=== PATIENT | female | born 1955 | race Caucasian/White ===

== ENCOUNTER 2018-12-03 05:26 | Inpatient (IN) | payer MEDICAID ==
[2018-12-03] MEDS ORDERED: Albuterol/Ipratropium Neb 3 ML AERS HHN ONE ×3 (05:51→09:10)
[2018-12-03] MEDS ORDERED: Dexamethasone Sodium Phos 4 mg/mL Vial INH STA (05:52)
[2018-12-03] MEDS ORDERED: Dexamethasone Sodium Phos 4 mg/mL Vial ONE (05:55)
[2018-12-03] MEDS ORDERED: Sodium Chloride 0.9% 250 ML IV ONE (05:59)
--- NOTE | 2018-12-03 05:59 | ED Physician Chart ---
ED Chief Complaint/HPI - Patient Information Date Seen:: 12/03/18 Time Seen:: 05:53 Chief Complaint:: sob History of Present Illness:: 63 yr old with hx of copd with sob cough congestion Allergies:: Allergies Allergy/AdvReac Type Severity Reaction Status Date / Time No Known Allergies Allergy Verified 12/03/18 05:47 Vitals:: Vital Signs - 8 hr 12/03/18 05:30 Temp 97.7 F HR 104 RR 20 BP 149/108 O2 Sat % 83 ED Review of Systems - Review of Systems General/Constitutional: Fever Skin: No skin lesions, No rash, No bruising Head: No headache, No light-headedness Eyes: No loss of vision, No pain, No diplopia ENT: No earache, No nasal drainage, No sore throat, No tinnitus Neck: No neck pain, No swelling, No thyromegaly, No stiffness, No mass noted Cardio Vascular: No chest pain, No palpitations, No PND, No orthopnea, No edema Pulmonary: SOB, Cough GI: Nausea, Vomiting, Diarrhea G/U: No dysuria, No frequency, No hematuria Musculoskeletal: No bone or joint pain, No back pain, No muscle pain Endocrine: No polyuria, No polydipsia Psychiatric: No prior psych history, No depression, No anxiety, No suicidal ideation Hematopoietic: No bruising, No lymphadenopathy Allergic/Immuno: No urticaria, No angioedema Neurological: No syncope, No focal symptoms, No weakness, No paresthesia, No headache, No seizure, No dizziness, No confusion, No vertigo ED Past Medical History - Past Medical History Past Medical History: Other (sob) ED Physical Exam - Physical Examination Other Respiratory comments:: sob wheezing decreased airway movement ED Assessment - Assessment General Assessment: copd exacerbation bronchitis ED Septic Shock - . Is Septic Shock (SBP<90, OR Lactate>4 mmol\L) present?: No - <6hrs of presentation: Vital Signs: Vital Signs - 8 hr 12/03/18 05:30 Temp 97.7 F HR 104 RR 20 BP 149/108 O2 Sat % 83 ED Reassessment (Disposition) - Reassessment Reassessment:: copd [id number] - Diagnosis Diagnosis:: copd exacerbation - Patient Disposition Discharge/Transfer:: Acute Care w/in this hosp Condition at Disposition:: Stable
[2018-12-03 06:19] LABS: % BASOPHILS 0.5 % (0.0-2.0); % EOSINOPHILS 0.2 % (0.0-5.0); % LYMPHOCYTES 8.1 % (20.0-50.0); % MONOCYTES 7.9 % (2.0-10.0); % NEUTROPHILS 83.3 % (40.0-80.0); HEMATOCRIT 40.9 % (41.0-60); HEMOGLOBIN 13.5 gm/dL (12-16); LYMPHOCYTE ABSOLUTE 0.6 Th/cmm (1.5-3.0); MEAN CELL VOLUME 92.9 fl (81-100); MEAN CORPUSCULAR HEMOGLOBIN 30.8 pg (27.0-31.0); MEAN CORPUSCULAR HGB CONC 33.1 pg (28.0-36.0); MEAN PLATELET VOLUME 7.7 fl; MONOCYTE ABSOLUTE 0.6 Th/cmm (0.3-1.0); NEUTROPHILE ABSOLUTE 6.1 Th/cmm (1.8-8.0); PLATELET COUNT 212 Th/cmm (150-400); RED CELL DISTRIBUTION WIDTH 11.7 % (11.5-20.0); WHITE BLOOD COUNT 7.3 Th/cmm (4.8-10.8)
[2018-12-03 06:30] LABS: ALB/GLOB RATIO 1.5 (1.0-1.8); ALBUMIN 4.2 gm/dL (3.7-5.3); BILIRUBIN,TOTAL 0.3 mg/dL (0.3-1.0); CALCIUM SERUM 9.3 mg/dL (8.6-10.3); CARBON DIOXIDE 25.5 mEq/L (21.0-31.0); CREATININE - SERUM 1.2 mg/dL (0.6-1.2); GFR AFRICAN-AMERICAN 58.5 ml/min (>90); GFR NON AFRICAN-AMERICAN 48.4 ml/min; POTASSIUM SERUM 4.5 mEq/L (3.5-5.1)
[2018-12-03] MEDS ORDERED: cefTRIAXone 1 GM in Sodium Chloride 0.9% 50 ML IV ONE (07:20)
[2018-12-03] MEDS ORDERED: Magnesium Sulfate 1 gm/2 mL 2mL Vial IV ONE (07:36)
--- NOTE | 2018-12-03 08:29 | Diagnostic Imaging Report ---
Portable chest x-ray Time: 0 714 History: Shortness of breath Allowing for portable technique the heart size is normal. No focal pulmonary parenchymal processes. No hilar or mediastinal abnormalities. Impression: No acute abnormalities.
[2018-12-03 08:53] LABS: URINE BILIRUBIN NEGATIVE (NEGATIVE); URINE BLOOD SMALL (NEGATIVE); URINE GLUCOSE (UA) NEGATIVE (NEGATIVE); URINE KETONE NEGATIVE (NEGATIVE); URINE LEUKOCYTE ESTERASE NEGATIVE (NEGATIVE); URINE MICROSCOPIC INDICATED? YES; URINE NITRATE POSITIVE (NEGATIVE); URINE PROTEIN 30 mg/dL (NEGATIVE); URINE SOURCE CLEAN C; URINE UROBILINOGEN 0.2 E.U./dL (0.2 - 1.0)
[2018-12-03] MEDS: Albuterol/Ipratropium Neb 3 ML AERS HHN SCH ×3 (09:14→19:19)
[2018-12-03 09:22] LABS: URINE CLARITY SLIGHT HAZY (CLEAR); URINE COLOR STRAW
[2018-12-03] MEDS ORDERED: methylPREDNISolone SS 40 mg Vial ONE (09:28)
[2018-12-03] MEDS: methylPREDNISolone SS 40 mg Vial IVP SCH ×3 (09:30→20:57)
[2018-12-03 09:39] LABS: URINE EPITHELIAL CELLS RARE /lpf (FEW); URINE RBC 0-2 /hpf (0-5); URINE WBC NONE SEEN /hpf (0-5)
[2018-12-03 09:40] LABS: URINE BACTERIA OCCASIONAL /hpf (NONE SEEN)
[2018-12-03 11:46] VITALS: BP 148/55
[2018-12-03] MEDS: Azithromycin 500 MG in Sodium Chloride 0.9% 250 ML IV SCH (17:30)
[2018-12-03] MEDS: Guaifenesin DM 10 ML UDC PO PRN (21:01)
[2018-12-04] MEDS: Albuterol/Ipratropium Neb 3 ML AERS HHN SCH ×4 (00:05→19:16)
[2018-12-04] MEDS: methylPREDNISolone SS 40 mg Vial IVP SCH ×4 (02:04→20:40)
[2018-12-04] MEDS: cefTRIAXone 1 GM in Sodium Chloride 0.9% 50 ML IV SCH (09:43)
[2018-12-04] MEDS: Albuterol/Ipratropium Neb 3 ML AERS HHN PRN (10:35)
--- NOTE | 2018-12-04 16:55 | History & Physical ---
ADMIT DATE: 12/03/2018 REASON FOR CONSULTATION: Help the patient with shortness of breath. HISTORY OF PRESENT ILLNESS: This is a 63-year-old female who is more than [id number] smoker, still smoke pack to a pack and half every day. Her symptoms started a few days back where more coughing, more wheezing and more shortness of breath. Subsequently, get extreme chest tightness, came to the hospital for further care and necessary treatment. Denied any fever. Denied of having any chest pain. ____ much of bronchorrhea. Some sinus congestion, occasional swelling of the legs. The patient has been chronic dyspneic on exertion to less than a flight of staircase for last many months. Has been started on Atrovent nebulized breathing treatment as well as albuterol by her PCP. No change in weight loss, etc. Has some snoring symptomatology, slight dyspeptic symptomatology. PAST MEDICAL HISTORY: 1. Hypertension. 2. Chronic obstructive pulmonary disease. ALLERGIC HISTORY: Nil. PAST SURGICAL HISTORY: As mentioned above. SOCIAL HISTORY: No illicit drug use, etc. Currently not working. PHYSICAL EXAMINATION: GENERAL: This is an thin looking middle-aged female, awake, alert, oriented, not in any acute distress. VITAL SIGNS: The patient's recorded vitals; temperature is 97.7, blood pressure 141/56, and saturation is 98 on 2 liters per minute. HEENT: Essentially unremarkable. Pupils appear to be equal and reacting to light. Conjunctivae slightly pallor. Oral cavity shows small oropharyngeal opening. No nodes in the neck could be palpated. CHEST: Shows scattered wheezing with diminished air entry. HEART: Regular. ABDOMEN: Soft and nontender. EXTREMITIES: Shows no peripheral edema. LABORATORY DATA: The patient's pertinent laboratory studies: White count is 7.3, hemoglobin is 13.5. Sodium is 135. Sugar is 121. Urine shows positive nitrites with small blood. Chest x-ray shows slightly over penetrated, slightly increased bronchovascular marking, otherwise unremarkable. IMPRESSION: 1. The patient has acute exacerbation of chronic obstructive pulmonary disease. 2. Developing emphysema. 3. Hypertension. 4. Suspect sleep apnea syndrome/gastroesophageal reflux disease. PLANS AND SUGGESTIONS: We will give aggressive respiratory care, inhalation treatment. I agree with antibiotic. We will repeat chest x-ray PA and lateral, including ABG, etc. and go from there. Thank you very much. We will be glad to follow along with you. JOB# [id number]
[2018-12-04] MEDS ORDERED: Azithromycin 250 MG in Sodium Chloride 0.9% 250 ML IV SCH (17:00)
[2018-12-04] MEDS: Azithromycin 500 MG in Sodium Chloride 0.9% 250 ML IV SCH (17:28)
--- NOTE | 2018-12-04 18:09 | History & Physical ---
ADMIT DATE: 12/03/2018 CHIEF COMPLAINT: Shortness of breath. HISTORY OF PRESENT ILLNESS: A 63-year-old female who is a chronic smoker with an underlying history of COPD who was evaluated in the emergency room for shortness of breath and cough, diagnosed with acute exacerbation, and admitted for further treatment. The patient has not been feeling well for about 3-4 days, was having nausea, some diarrhea. Denies any fever. No chills. No headache. No body ache. The patient, overnight, did well, started her on Solu-Medrol, antibiotics, and bronchodilator treatment. The patient states today she feels much better. PAST MEDICAL HISTORY: COPD. PAST SURGICAL HISTORY: Denied. SOCIAL HISTORY: Chronic smoker. Denies alcohol or drug use. MEDICATIONS: Per medication reconciliation. ALLERGIES: No known drug allergies. REVIEW OF SYSTEMS: As per HPI, 12-point system reviewed, was negative. PHYSICAL EXAMINATION: VITAL SIGNS: Temperature 99.6, pulse 91, respirations 20, blood pressure 134/57, 92% with 2 liters nasal cannula. HEENT: Unremarkable. HEART: S1, S2 normal. LUNGS: Bilateral rales. ABDOMEN: Soft, nontender. EXTREMITIES: No edema. AVAILABLE LAB DATA/IMAGING: The patient had a chest x-ray which was negative for any infiltrate. ASSESSMENT: Acute COPD Exacerbation Nicotine dependancy PLAN: The patient will continue on Rocephin, frequent bronchodilator treatment, oxygen support, IV Solu-Medrol, pulmonology consulted, Robitussin-DM for cough. Smoking cessation discussed with the patient. Plan of care discussed with the patient and the staff. JOB# [id number] [facility]
[2018-12-04] MEDS: Budesonide 0.5 Mg/2 mL Ud HHN SCH (19:16)
[2018-12-04] MEDS: Guaifenesin DM 10 ML UDC PO PRN (20:40)
--- NOTE | 2018-12-04 21:27 | General Progress Note ---
Subjective - Review of Systems Service Date: 12/04/18 Subjective: Patient doing better no new concern reported Objective - Results Result Diagrams: 12/03/18 06:07 12/03/18 06:07 Recent Labs: Laboratory Last Values WBC 7.3 Th/cmm (4.8-10.8) 12/03/18 06:07 RBC 4.40 Mil/cmm (3.80-5.10) 12/03/18 06:07 Hgb 13.5 gm/dL (12-16) 12/03/18 06:07 Hct 40.9 % (41.0-60) L 12/03/18 06:07 MCV 92.9 fl (81-100) 12/03/18 06:07 MCH 30.8 pg (27.0-31.0) 12/03/18 06:07 MCHC Differential 33.1 pg (28.0-36.0) 12/03/18 06:07 RDW 11.7 % (11.5-20.0) 12/03/18 06:07 Plt Count 212 Th/cmm (150-400) 12/03/18 06:07 MPV 7.7 fl 12/03/18 06:07 Neutrophils % 83.3 % (40.0-80.0) H 12/03/18 06:07 Lymphocytes % 8.1 % (20.0-50.0) L 12/03/18 06:07 Monocytes % 7.9 % (2.0-10.0) 12/03/18 06:07 Eosinophils % 0.2 % (0.0-5.0) 12/03/18 06:07 Basophils % 0.5 % (0.0-2.0) 12/03/18 06:07 Sodium 135 mEq/L (136-145) L 12/03/18 06:07 Potassium 4.5 mEq/L (3.5-5.1) 12/03/18 06:07 Chloride 100 mEq/L (98-107) 12/03/18 06:07 Carbon Dioxide 25.5 mEq/L (21.0-31.0) 12/03/18 06:07 Anion Gap 14.0 (7.0-16.0) 12/03/18 06:07 BUN 12 mg/dL (7-25) 12/03/18 06:07 Creatinine 1.2 mg/dL (0.6-1.2) 12/03/18 06:07 Est GFR ( Amer) 58.5 ml/min (>90) 12/03/18 06:07 Est GFR (Non-Af Amer) 48.4 ml/min 12/03/18 06:07 BUN/Creatinine Ratio 10.0 12/03/18 06:07 Glucose 121 mg/dL (70-105) H 12/03/18 06:07 Calcium 9.3 mg/dL (8.6-10.3) 12/03/18 06:07 Total Bilirubin 0.3 mg/dL (0.3-1.0) 12/03/18 06:07 AST 24 U/L (13-39) 12/03/18 06:07 ALT 16 U/L (7-52) 12/03/18 06:07 Alkaline Phosphatase 41 U/L (34-104) 12/03/18 06:07 Total Protein 7.0 gm/dL (6.0-8.3) 12/03/18 06:07 Albumin 4.2 gm/dL (3.7-5.3) 12/03/18 06:07 Globulin 2.8 gm/dL 12/03/18 06:07 Albumin/Globulin Ratio 1.5 (1.0-1.8) 12/03/18 06:07 Urine Source CLEAN C 12/03/18 05:52 Urine Color STRAW 12/03/18 05:52 Urine Clarity SLIGHT HAZY (CLEAR) 12/03/18 05:52 Urine pH 6.0 (4.6 - 8.0) 12/03/18 05:52 Ur Specific [place] 1.015 (1.005-1.030) 12/03/18 05:52 Urine Protein 30 mg/dL (NEGATIVE) H 12/03/18 05:52 Urine Glucose (UA) NEGATIVE mg/dL (NEGATIVE) 12/03/18 05:52 Urine Ketones NEGATIVE mg/dL (NEGATIVE) 12/03/18 05:52 Urine Blood SMALL (NEGATIVE) H 12/03/18 05:52 Urine Nitrate POSITIVE (NEGATIVE) H 12/03/18 05:52 Urine Bilirubin NEGATIVE (NEGATIVE) 12/03/18 05:52 Urine Urobilinogen 0.2 E.U./dL (0.2 - 1.0) 12/03/18 05:52 Ur Leukocyte Esterase NEGATIVE (NEGATIVE) 12/03/18 05:52 Urine RBC 0-2 /hpf (0-5) 12/03/18 05:52 Urine WBC NONE SEEN /hpf (0-5) 12/03/18 05:52 Ur Epithelial Cells RARE /lpf (FEW) 12/03/18 05:52 Urine Bacteria OCCASIONAL /hpf (NONE SEEN) 12/03/18 05:52 - Physical Exam Vitals and I&O: Vital Signs Temp 98.2 F 12/04/18 16:31 Pulse 96 12/04/18 19:28 Resp 22 12/04/18 19:28 BP 141/56 12/04/18 16:31 Pulse Ox 97 12/04/18 19:28 Intake & Output 12/04/18 12/04/18 12/05/18 06:59 18:59 06:59 Intake Total 220 850 250 Output Total 500 Balance 220 350 250 Weight (lbs) 64.41 kg 64.319 kg Intake: Intake, IV Amount 250 Azithromycin 500 mg In 250 Sodium Chloride 0.9% 250 ml @ 250 mls/hr IV Q24HR [facility] Rx#:[id number] Oral 220 850 Output: Urine 500 Other: # Voids 1 # Bowel Movements 1 Weight Source Bedscale Bedscale Active Medications: Current Medications Albuterol/Ipratropium (Duoneb Neb) 3 ml HHN Q2H PRN PRN Reason: Shortness of Breath or Wheeze Stop: 02/01/19 09:14 Last Admin: 12/04/18 10:35 Dose: 3 ml Albuterol/Ipratropium (Duoneb Neb) 3 ml HHN [id number] [facility] Stop: 02/02/19 18:59 Last Admin: 12/04/18 19:16 Dose: 3 ml Budesonide (Pulmicort) 0.5 mg HHN BIDRT [facility] Stop: 02/02/19 18:59 Last Admin: 12/04/18 19:16 Dose: 0.5 mg Guaifenesin/Dextromethorphan (Robitussin Dm) 10 ml PO Q6HR PRN PRN Reason: Cough Stop: 02/01/19 18:52 Last Admin: 12/04/18 20:40 Dose: 10 ml Ceftriaxone Sodium 1 gm/ (Sodium Chloride) 50 mls @ 100 mls/hr IV Q24HR [facility] Stop: 02/02/19 08:59 Last Admin: 12/04/18 09:43 Dose: 100 mls/hr Azithromycin 500 mg/ Sodium (Chloride) 250 mls @ 250 mls/hr IV Q24HR [facility] Stop: 02/01/19 16:59 Last Infusion: 12/04/18 20:34 Dose: Infused Methylprednisolone Sodium Succinate (Solu-Medrol) 20 mg IVP Q6HR [facility] Stop: 02/03/19 00:00 Cardiovascular: Regular rate Lungs: Other (rales) Assessment/Plan - Assessment Assessment: Acute COPD exacerbation Nicotine dependancy - Plan Plan: Taper sterids IV rocephine and zithromax Duo NEB
[2018-12-05] MEDS: Albuterol/Ipratropium Neb 3 ML AERS HHN PRN ×2 (00:11→05:19)
[2018-12-05] MEDS: methylPREDNISolone SS 40 mg Vial IVP SCH ×4 (00:52→17:47)
[2018-12-05 06:50] LABS: HEMATOCRIT 36.8 % (41.0-60); HEMOGLOBIN 12.6 gm/dL (12-16); MEAN CELL VOLUME 93.2 fl (81-100); MEAN CORPUSCULAR HEMOGLOBIN 31.8 pg (27.0-31.0); MEAN CORPUSCULAR HGB CONC 34.1 pg (28.0-36.0); PLATELET COUNT 201 Th/cmm (150-400); RED BLOOD COUNT 3.95 Mil/cmm (3.80-5.10); RED CELL DISTRIBUTION WIDTH 11.5 % (11.5-20.0); WHITE BLOOD COUNT 13.4 Th/cmm (4.8-10.8)
[2018-12-05 08:00] LABS: NEUTROPHILS 92 % (40-80)
[2018-12-05 08:01] LABS: BAND NEUTROPHILE 0 % (0-10); LYMPHOCYTE 5 % (20-50); MONOCYTE 3 % (2-10)
[2018-12-05] MEDS: cefTRIAXone 1 GM in Sodium Chloride 0.9% 50 ML IV SCH (08:39)
--- NOTE | 2018-12-05 08:52 | Diagnostic Imaging Report ---
Chest x-ray (2 views) HISTORY: Shortness of breath The lungs are hyperexpanded consistent with changes of COPD. Accentuation of the lower interstitial lung markings. However, no acute focal processes are seen. The heart size is normal. Atherosclerotic calcification seen in the aorta. No hilar or mediastinal abnormalities. IMPRESSION: 1. Findings consistent with COPD 2. No acute abnormalities
[2018-12-05] MEDS: Budesonide 0.5 Mg/2 mL Ud HHN SCH ×2 (09:50→19:04)
[2018-12-05] MEDS: Albuterol/Ipratropium Neb 3 ML AERS HHN SCH ×4 (09:57→18:49)
--- NOTE | 2018-12-05 14:30 | Progress Notes ---
DATE: 12/05/2018 PULMONARY PROGRESS NOTE PROBLEM LIST: 1. Acute exacerbation of chronic obstructive pulmonary disease. 2. Underlying tobacco dependence. 3. Recurrent anxiety. SYMPTOMS: The patient is feeling okay, offers no specific new symptoms. Breathing is still a little congested, but better than 2 days ago. PHYSICAL EXAMINATION: VITAL SIGNS: The patient's recorded vitals: Temperature is 96.3, blood pressure 130/56, saturation 93 on 2 liters. ENT: Shows no acute changes. CHEST: Shows occasional wheezing with diminished air entry. HEART: Regular. ABDOMEN: Soft, nontender. LABORATORY DATA: White count is 13.4, hemoglobin 12.6. ABG is pending. Electrolytes sugar shows slightly elevated. Chest x-ray is clear with slightly increased interstitial changes. ASSESSMENT: The patient is clinically stable, improving respiratory egan. PLANS AND SUGGESTIONS: We will continue current treatment. Discussed with ____, checked the blood gases and checked to assess the need for O2, etc. and go from there. JOB# [id number]
[2018-12-05 14:58] LABS: pH 7.41 (7.35-7.45)
[2018-12-05 14:59] LABS: ALLEN TEST pos
[2018-12-05] MEDS: Azithromycin 500 MG in Sodium Chloride 0.9% 250 ML IV SCH (17:45)
--- NOTE | 2018-12-05 21:29 | General Progress Note ---
Subjective - Review of Systems Service Date: 12/05/18 Subjective: Patient doing better less cough denied chest pain or shortness of breath Objective - Results Result Diagrams: 12/05/18 06:22 12/03/18 06:07 Recent Labs: Laboratory Last Values WBC 13.4 Th/cmm (4.8-10.8) H 12/05/18 06:22 RBC 3.95 Mil/cmm (3.80-5.10) 12/05/18 06:22 Hgb 12.6 gm/dL (12-16) 12/05/18 06:22 Hct 36.8 % (41.0-60) L 12/05/18 06:22 MCV 93.2 fl (81-100) 12/05/18 06:22 MCH 31.8 pg (27.0-31.0) H 12/05/18 06:22 MCHC Differential 34.1 pg (28.0-36.0) 12/05/18 06:22 RDW 11.5 % (11.5-20.0) 12/05/18 06:22 Plt Count 201 Th/cmm (150-400) 12/05/18 06:22 MPV 8.0 fl 12/05/18 06:22 Add Manual Diff YES 12/05/18 06:22 Neutrophils % 83.3 % (40.0-80.0) H 12/03/18 06:07 Band Neutrophils % 0 % (0-10) 12/05/18 06:22 Lymphocytes % 8.1 % (20.0-50.0) L 12/03/18 06:07 Monocytes % 7.9 % (2.0-10.0) 12/03/18 06:07 Eosinophils % 0.2 % (0.0-5.0) 12/03/18 06:07 Basophils % 0.5 % (0.0-2.0) 12/03/18 06:07 Neutrophils (Manual) 92 % (40-80) H 12/05/18 06:22 Lymphocytes 5 % (20-50) L 12/05/18 06:22 Monocytes 3 % (2-10) 12/05/18 06:22 Specimen Source art 12/05/18 14:48 Sample Site rr 12/05/18 14:48 pH 7.41 (7.35-7.45) 12/05/18 14:48 pCO2 49.0 mmHg (35.0-45.0) H 12/05/18 14:48 pO2 51.0 mmHg (80.0-100.0) L 12/05/18 14:48 HCO3 28.9 mEq/L (20.0-26.0) H 12/05/18 14:48 Base Excess 5.4 mEq/L (-3.0-3.0) H 12/05/18 14:48 O2 Saturation 86.0 % (92.0-100.0) L 12/05/18 14:48 Hugo Test pos 12/05/18 14:48 Vent Rate na 12/05/18 14:48 Inspired O2 21 12/05/18 14:48 Tidal Volume na 12/05/18 14:48 PEEP na 12/05/18 14:48 Pressure (ins/psv/peep) na 12/05/18 14:48 Critical Value rninofranco 12/05/18 14:48 Sodium 135 mEq/L (136-145) L 12/03/18 06:07 Potassium 4.5 mEq/L (3.5-5.1) 12/03/18 06:07 Chloride 100 mEq/L (98-107) 12/03/18 06:07 Carbon Dioxide 25.5 mEq/L (21.0-31.0) 12/03/18 06:07 Anion Gap 14.0 (7.0-16.0) 12/03/18 06:07 BUN 12 mg/dL (7-25) 12/03/18 06:07 Creatinine 1.2 mg/dL (0.6-1.2) 12/03/18 06:07 Est GFR ( Amer) 58.5 ml/min (>90) 12/03/18 06:07 Est GFR (Non-Af Amer) 48.4 ml/min 12/03/18 06:07 BUN/Creatinine Ratio 10.0 12/03/18 06:07 Glucose 121 mg/dL (70-105) H 12/03/18 06:07 Calcium 9.3 mg/dL (8.6-10.3) 12/03/18 06:07 Total Bilirubin 0.3 mg/dL (0.3-1.0) 12/03/18 06:07 AST 24 U/L (13-39) 12/03/18 06:07 ALT 16 U/L (7-52) 12/03/18 06:07 Alkaline Phosphatase 41 U/L (34-104) 12/03/18 06:07 Total Protein 7.0 gm/dL (6.0-8.3) 12/03/18 06:07 Albumin 4.2 gm/dL (3.7-5.3) 12/03/18 06:07 Globulin 2.8 gm/dL 12/03/18 06:07 Albumin/Globulin Ratio 1.5 (1.0-1.8) 12/03/18 06:07 Urine Source CLEAN C 12/03/18 05:52 Urine Color STRAW 12/03/18 05:52 Urine Clarity SLIGHT HAZY (CLEAR) 12/03/18 05:52 Urine pH 6.0 (4.6 - 8.0) 12/03/18 05:52 Ur Specific [place] 1.015 (1.005-1.030) 12/03/18 05:52 Urine Protein 30 mg/dL (NEGATIVE) H 12/03/18 05:52 Urine Glucose (UA) NEGATIVE mg/dL (NEGATIVE) 12/03/18 05:52 Urine Ketones NEGATIVE mg/dL (NEGATIVE) 12/03/18 05:52 Urine Blood SMALL (NEGATIVE) H 12/03/18 05:52 Urine Nitrate POSITIVE (NEGATIVE) H 12/03/18 05:52 Urine Bilirubin NEGATIVE (NEGATIVE) 12/03/18 05:52 Urine Urobilinogen 0.2 E.U./dL (0.2 - 1.0) 12/03/18 05:52 Ur Leukocyte Esterase NEGATIVE (NEGATIVE) 12/03/18 05:52 Urine RBC 0-2 /hpf (0-5) 12/03/18 05:52 Urine WBC NONE SEEN /hpf (0-5) 12/03/18 05:52 Ur Epithelial Cells RARE /lpf (FEW) 12/03/18 05:52 Urine Bacteria OCCASIONAL /hpf (NONE SEEN) 12/03/18 05:52 - Physical Exam Vitals and I&O: Vital Signs Temp 97.4 F 12/05/18 15:44 Pulse 90 12/05/18 19:04 Resp 20 12/05/18 20:00 BP 148/54 12/05/18 15:44 Pulse Ox 95 12/05/18 19:04 Intake & Output 12/05/18 12/05/18 12/06/18 06:59 18:59 06:59 Intake Total 250 1440 Balance 250 1440 Weight (lbs) 63.957 kg Intake: Intake, IV Amount 250 Azithromycin 500 mg In 250 Sodium Chloride 0.9% 250 ml @ 250 mls/hr IV Q24HR [facility] Rx#:[id number] Oral 1440 Other: # Voids 3 # Bowel Movements 0 Weight Source Bedscale Active Medications: Current Medications Albuterol/Ipratropium (Duoneb Neb) 3 ml HHN Q2H PRN PRN Reason: Shortness of Breath or Wheeze Stop: 02/01/19 09:14 Last Admin: 12/05/18 05:19 Dose: 3 ml Albuterol/Ipratropium (Duoneb Neb) 3 ml HHN [id number] [facility] Stop: 02/02/19 18:59 Last Admin: 12/05/18 18:49 Dose: 3 ml Budesonide (Pulmicort) 0.5 mg HHN BIDRT [facility] Stop: 02/02/19 18:59 Last Admin: 12/05/18 19:04 Dose: 0.5 mg Guaifenesin/Dextromethorphan (Robitussin Dm) 10 ml PO Q6HR PRN PRN Reason: Cough Stop: 02/01/19 18:52 Last Admin: 12/04/18 20:40 Dose: 10 ml Ceftriaxone Sodium 1 gm/ (Sodium Chloride) 50 mls @ 100 mls/hr IV Q24HR [facility] Stop: 02/02/19 08:59 Last Admin: 12/05/18 08:39 Dose: 100 mls/hr Azithromycin 500 mg/ Sodium (Chloride) 250 mls @ 250 mls/hr IV Q24HR [facility] Stop: 02/01/19 16:59 Last Admin: 12/05/18 17:45 Dose: 250 mls/hr Methylprednisolone Sodium Succinate (Solu-Medrol) 20 mg IVP Q6HR [facility] Stop: 02/03/19 00:00 Last Admin: 12/05/18 17:47 Dose: 20 mg Cardiovascular: Regular rate Lungs: Other (rales) Assessment/Plan - Assessment Assessment: Acute COPD exacerbation Nicotine dependancy - Plan Plan: IV sterids IV rocephine and zithromax Duo ROSALES DC home tomorrow if no new issue
[2018-12-06] MEDS: methylPREDNISolone SS 40 mg Vial IVP SCH ×3 (00:07→11:35)
[2018-12-06 07:00] LABS: HEMATOCRIT 38.9 % (41.0-60); HEMOGLOBIN 12.8 gm/dL (12-16); MEAN CELL VOLUME 95.3 fl (81-100); MEAN CORPUSCULAR HEMOGLOBIN 31.3 pg (27.0-31.0); MEAN CORPUSCULAR HGB CONC 32.9 pg (28.0-36.0); MEAN PLATELET VOLUME 7.9 fl; PLATELET COUNT 212 Th/cmm (150-400); RED BLOOD COUNT 4.09 Mil/cmm (3.80-5.10); RED CELL DISTRIBUTION WIDTH 11.5 % (11.5-20.0)
[2018-12-06 07:21] LABS: ANION GAP 10.9 (7.0-16.0); CARBON DIOXIDE 29.1 mEq/L (21.0-31.0); CREATININE - SERUM 1.2 mg/dL (0.6-1.2); GFR AFRICAN-AMERICAN 58.5 ml/min (>90); GFR NON AFRICAN-AMERICAN 48.4 ml/min
[2018-12-06] MEDS: Albuterol/Ipratropium Neb 3 ML AERS HHN SCH ×4 (07:24→18:59)
[2018-12-06] MEDS: Budesonide 0.5 Mg/2 mL Ud HHN SCH ×2 (07:31→19:09)
[2018-12-06 08:11] LABS: LYMPHOCYTE 6 % (20-50); MONOCYTE 5 % (2-10); NEUTROPHILS 89 % (40-80); PLATELET ESTIMATE ADEQUATE (NORMAL)
[2018-12-06] MEDS: cefTRIAXone 1 GM in Sodium Chloride 0.9% 50 ML IV SCH (08:21)
--- NOTE | 2018-12-06 14:40 | Progress Notes ---
DATE: 12/06/2018 PROBLEM LIST: 1. Acute exacerbation of chronic obstructive pulmonary disease. 2. Tobacco dependence. 3. Underlying possibly emphysema. SYMPTOMS: Nil, feeling better. He is able to ambulate without much of difficulty. No respiratory distress, etc. PHYSICAL EXAMINATION: VITAL SIGNS: The patient's recorded vital signs, temperature is 97.1, blood pressure 147/51, saturation 97 on room air. ENG shows no changes. CHEST: Shows occasional rhonchi with diminished air entry. HEART: Regular. ABDOMEN: Soft, nontender. EXTREMITIES: Shows no peripheral edema. LABORATORY DATA: The patient's white count is 11,000, hemoglobin 12.5 and blood gases pO2 is 52, saturation is okay. Electrolytes are okay. IMPRESSION: The patient is clinically stable. PLANS AND SUGGESTIONS: Okay pulmonary egan discharge, may need to check pulse ox before discharge on a tapering dose of steroid, add Levaquin and or equivalent and go from there. JOB# [id number]
--- NOTE | 2018-12-06 21:04 | General Progress Note ---
Subjective - Review of Systems Service Date: 12/06/18 Subjective: Patient doing better denied any complaints Objective - Results Result Diagrams: 12/06/18 06:33 12/06/18 06:33 Recent Labs: Laboratory Last Values WBC 11.0 Th/cmm (4.8-10.8) H 12/06/18 06:33 RBC 4.09 Mil/cmm (3.80-5.10) 12/06/18 06:33 Hgb 12.8 gm/dL (12-16) 12/06/18 06:33 Hct 38.9 % (41.0-60) L 12/06/18 06:33 MCV 95.3 fl (81-100) 12/06/18 06:33 MCH 31.3 pg (27.0-31.0) H 12/06/18 06:33 MCHC Differential 32.9 pg (28.0-36.0) 12/06/18 06:33 RDW 11.5 % (11.5-20.0) 12/06/18 06:33 Plt Count 212 Th/cmm (150-400) 12/06/18 06:33 MPV 7.9 fl 12/06/18 06:33 Add Manual Diff YES 12/06/18 06:33 Neutrophils % 83.3 % (40.0-80.0) H 12/03/18 06:07 Band Neutrophils % 0 % (0-10) 12/05/18 06:22 Lymphocytes % 8.1 % (20.0-50.0) L 12/03/18 06:07 Monocytes % 7.9 % (2.0-10.0) 12/03/18 06:07 Eosinophils % 0.2 % (0.0-5.0) 12/03/18 06:07 Basophils % 0.5 % (0.0-2.0) 12/03/18 06:07 Neutrophils (Manual) 89 % (40-80) H 12/06/18 06:33 Lymphocytes 6 % (20-50) L 12/06/18 06:33 Monocytes 5 % (2-10) 12/06/18 06:33 Platelet Estimate ADEQUATE (NORMAL) 12/06/18 06:33 Specimen Source art 12/05/18 14:48 Sample Site rr 12/05/18 14:48 pH 7.41 (7.35-7.45) 12/05/18 14:48 pCO2 49.0 mmHg (35.0-45.0) H 12/05/18 14:48 pO2 51.0 mmHg (80.0-100.0) L 12/05/18 14:48 HCO3 28.9 mEq/L (20.0-26.0) H 12/05/18 14:48 Base Excess 5.4 mEq/L (-3.0-3.0) H 12/05/18 14:48 O2 Saturation 86.0 % (92.0-100.0) L 12/05/18 14:48 Hugo Test pos 12/05/18 14:48 Vent Rate na 12/05/18 14:48 Inspired O2 21 12/05/18 14:48 Tidal Volume na 12/05/18 14:48 PEEP na 12/05/18 14:48 Pressure (ins/psv/peep) na 12/05/18 14:48 Critical Value rninofranco 12/05/18 14:48 Sodium 136 mEq/L (136-145) 12/06/18 06:33 Potassium 5.0 mEq/L (3.5-5.1) 12/06/18 06:33 Chloride 101 mEq/L (98-107) 12/06/18 06:33 Carbon Dioxide 29.1 mEq/L (21.0-31.0) 12/06/18 06:33 Anion Gap 10.9 (7.0-16.0) 12/06/18 06:33 BUN 33 mg/dL (7-25) H 12/06/18 06:33 Creatinine 1.2 mg/dL (0.6-1.2) 12/06/18 06:33 Est GFR ( Amer) 58.5 ml/min (>90) 12/06/18 06:33 Est GFR (Non-Af Amer) 48.4 ml/min 12/06/18 06:33 BUN/Creatinine Ratio 27.5 12/06/18 06:33 Glucose 136 mg/dL (70-105) H 12/06/18 06:33 Calcium 9.0 mg/dL (8.6-10.3) 12/06/18 06:33 Total Bilirubin 0.3 mg/dL (0.3-1.0) 12/03/18 06:07 AST 24 U/L (13-39) 12/03/18 06:07 ALT 16 U/L (7-52) 12/03/18 06:07 Alkaline Phosphatase 41 U/L (34-104) 12/03/18 06:07 Total Protein 7.0 gm/dL (6.0-8.3) 12/03/18 06:07 Albumin 4.2 gm/dL (3.7-5.3) 12/03/18 06:07 Globulin 2.8 gm/dL 12/03/18 06:07 Albumin/Globulin Ratio 1.5 (1.0-1.8) 12/03/18 06:07 Urine Source CLEAN C 12/03/18 05:52 Urine Color STRAW 12/03/18 05:52 Urine Clarity SLIGHT HAZY (CLEAR) 12/03/18 05:52 Urine pH 6.0 (4.6 - 8.0) 12/03/18 05:52 Ur Specific [place] 1.015 (1.005-1.030) 12/03/18 05:52 Urine Protein 30 mg/dL (NEGATIVE) H 12/03/18 05:52 Urine Glucose (UA) NEGATIVE mg/dL (NEGATIVE) 12/03/18 05:52 Urine Ketones NEGATIVE mg/dL (NEGATIVE) 12/03/18 05:52 Urine Blood SMALL (NEGATIVE) H 12/03/18 05:52 Urine Nitrate POSITIVE (NEGATIVE) H 12/03/18 05:52 Urine Bilirubin NEGATIVE (NEGATIVE) 12/03/18 05:52 Urine Urobilinogen 0.2 E.U./dL (0.2 - 1.0) 12/03/18 05:52 Ur Leukocyte Esterase NEGATIVE (NEGATIVE) 12/03/18 05:52 Urine RBC 0-2 /hpf (0-5) 12/03/18 05:52 Urine WBC NONE SEEN /hpf (0-5) 12/03/18 05:52 Ur Epithelial Cells RARE /lpf (FEW) 12/03/18 05:52 Urine Bacteria OCCASIONAL /hpf (NONE SEEN) 12/03/18 05:52 - Physical Exam Vitals and I&O: Vital Signs Temp 98.2 F 12/06/18 20:00 Pulse 87 12/06/18 20:00 Resp 20 01/31/19 20:00 BP 164/65 12/06/18 20:00 Pulse Ox 96 12/06/18 20:00 Intake & Output 12/06/18 12/06/18 12/07/18 06:59 18:59 06:59 Intake Total 400 Balance 400 Weight (lbs) 63.957 kg Intake: Oral 400 Other: # Voids 2 Stool Characteristics Formed Weight Source Bedscale Active Medications: Current Medications Albuterol/Ipratropium (Duoneb Neb) 3 ml HHN Q2H PRN PRN Reason: Shortness of Breath or Wheeze Stop: 02/01/19 09:14 Last Admin: 12/05/18 05:19 Dose: 3 ml Albuterol/Ipratropium (Duoneb Neb) 3 ml HHN [id number] [facility] Stop: 02/02/19 18:59 Last Admin: 12/06/18 18:59 Dose: 3 ml Budesonide (Pulmicort) 0.5 mg HHN BIDRT [facility] Stop: 02/02/19 18:59 Last Admin: 12/06/18 19:09 Dose: 0.5 mg Guaifenesin/Dextromethorphan (Robitussin Dm) 10 ml PO Q6HR PRN PRN Reason: Cough Stop: 02/01/19 18:52 Last Admin: 12/04/18 20:40 Dose: 10 ml Levofloxacin (Levaquin) 500 mg PO DAILY [facility] Stop: 02/04/19 14:29 Last Admin: 12/06/18 16:19 Dose: 500 mg Prednisone (Deltasone) 10 mg PO TID [facility] Stop: 02/04/19 20:59 Last Admin: 12/06/18 20:58 Dose: 10 mg Cardiovascular: Regular rate Lungs: Other ( few rales) Assessment/Plan - Assessment Assessment: Acute COPD exacerbation Nicotine dependancy - Plan Plan: Pulmonary cleared patient for home discharge DC plan discussed with the patient and nursing staff
[2018-12-07] MEDS: Albuterol/Ipratropium Neb 3 ML AERS HHN PRN ×2 (01:20→14:24)
[2018-12-07] MEDS: Albuterol/Ipratropium Neb 3 ML AERS HHN SCH ×3 (07:13→14:24)
[2018-12-07] MEDS: Budesonide 0.5 Mg/2 mL Ud HHN SCH (07:13)
== END 2018-12-07 17:45 | disposition home or self-care (01) | DRG 140 ==
LOC: ER 05:26 → MSI 09:06
PROVIDERS: ADMIT Family Medicine; ATTEND Family Medicine
DX: J44.1 Chronic obstructive pulmonary disease with (acute) exacerbation (principal); F17.210 Nicotine dependence, cigarettes, uncomplicated; G47.33 Obstructive sleep apnea (adult) (pediatric); I10 Essential (primary) hypertension; F41.9 Anxiety disorder, unspecified
CPT/HCPCS: 36415-UA; 36600-90; 71045-TC; 71046-TC; 80048-TC; 80053-TC; 81001-TC; 82803-TC; 85007-TC; 85025-TC; 87086-90; 93005; 94640; 94760; 96375; J0456; J0696; J1100; J2920; J2930; J3475